=== PATIENT | male | born 1955 | race African-American/Black ===

== ENCOUNTER → 2023-09-17 | Outpatient (CLI) | payer MEDICARE, OTHER ==
[~2023-09-17] MED LIST: ACET-2247 PO; CALC-795 PO; CARB1TAB36 PO; LIDO1ADH23 TP
== END | disposition home or self-care (01) ==
LOC: RADMN 12:44
PROVIDERS: ATTEND Internal Medicine
DX: K56.41 Fecal impaction (principal); N21.0 Calculus in bladder; N20.0 Calculus of kidney
CPT/HCPCS: 74176